=== PATIENT | male | born 1950 ===

== ENCOUNTER 2017-02-16 07:55 | Day surgery (SDC) | payer MEDICARE ==
[2017-02-13 10:30] VITALS: BMI 26.9
[2017-02-16] MEDS ORDERED: Propofol 10 mg/ml Inj (20 ML) ONE (11:05)
[2017-02-16 12:04] VITALS: TEMP 97.2; O2SAT 96
[2017-02-16 12:44] VITALS: RESP 20
[2017-02-16 12:48] VITALS: BP 120/60; PULSE 65
== END 2017-02-16 12:45 | disposition home or self-care (01) ==
LOC: C.ENDO 07:55
PROVIDERS: ATTEND Internal Medicine Gastroenterology
DX: Z12.11 Encounter for screening for malignant neoplasm of colon (principal); K64.1 Second degree hemorrhoids
CPT/HCPCS: 45378; 82948; J2704